=== PATIENT | male | born 1960 | race Caucasian/White ===

== ENCOUNTER 2018-04-08 08:21 | Day surgery (SDC) | payer BC ==
[2018-03-31 14:51] VITALS: BMI 25.1
[~2018-04-08 08:21] MED LIST: DEXAMETHASONE SOD PHOSPHATE 10 MG/ML 1 ML VIAL IV ONE; HEPARIN SODIUM,PORCINE 5,000 UNIT/ML 1 ML VIAL SQ ONE; HYDROmorphone 0.5 MG/0.5 ML SYRINGE IVP PRN; LACTATED RINGERS 1,000 ML IV SCH; MIDAZOLAM 2 MG/2 ML VIAL IV PRN; ONDANSETRON 4 MG/2 ML VIAL IVP ONE; ceFAZolin IN SWFI 2 GM/20 ML SYRINGE IVP ONE
[2018-04-08] MEDS ORDERED: KETOROLAC 30 MG/ML 1 ML VIAL ONE (10:15)
[2018-04-08] MEDS ORDERED: NEOSTIGMINE 1 MG/ML 10 ML VIAL ONE (10:15)
[2018-04-08] MEDS ORDERED: MIDAZOLAM 2 MG/2 ML VIAL ONE (10:15)
[2018-04-08] MEDS ORDERED: fentaNYL (PF) 50 MCG/ML 2 ML AMP ONE (10:15)
[2018-04-08] MEDS ORDERED: LIDOCAINE 1% INJ 10MG/ML (20 ML MDV) ONE (10:15)
[2018-04-08] MEDS ORDERED: GLYCOPYRROLATE 0.2 MG/ML 2 ML VIAL ONE (10:15)
[2018-04-08] MEDS ORDERED: PROPOFOL 10 MG/ML 20 ML VIAL IV ONE (10:15)
[2018-04-08] MEDS ORDERED: SUCCINYLCHOLINE CHLORIDE 100 MG/5 ML SYR IV ONE (10:15)
[2018-04-08] MEDS ORDERED: ROCURONIUM BROMIDE 10 MG/ML 10 ML VIAL IV ONE (10:15)
[2018-04-08] MEDS ORDERED: HYDROmorphone (PF) 1 MG/ML ONE (10:15)
[2018-04-08] MEDS ORDERED: BUPIVACAIN-EPI 0.5%-1:200,000 30 ML VIAL SQ ONE ×2 (10:42)
[2018-04-08] MEDS ORDERED: LACTATED RINGERS 1,000 ML IV ONE ×2 (12:15→16:22)
[2018-04-08 12:25] VITALS: TEMP 97.7
[2018-04-08] MEDS ORDERED: NALOXONE 0.4 MG/ML 1 ML VIAL IV PRN (12:45)
[2018-04-08] MEDS ORDERED: HYDROcodone/APAP 5-325MG 1 EACH TAB PO PRN (12:45)
--- NOTE | 2018-04-08 12:52 | P.OP ---
Date of Procedure: 04/08/18 Procedure(s) Performed: PREOPERATIVE DIAGNOSIS: Right inguinal hernia POSTOPERATIVE DIAGNOSIS: Same PROCEDURE: Laparoscopic repair right inguinal hernia with the da Bertin robot assistance with mesh SURGEON: Marbin EBL: Minimal ANESTHESIA: General COMPLICATIONS: None OPERATIVE PROCEDURE: Patient was placed in the operating table in the supine position. The patient was placed under general anesthesia. The patient was then placed in lithotomy. The abdomen was prepped and draped in usual sterile fashion. A small vertical supraumbilical incision was made. The fascia was retracted anteriorly with Cruger forceps. The Veress needle was inserted. The saline drop test was not normal. I suspected we were still in the preperitoneal space however no further attempts at Veress needle insufflation took place. Stat the 5 mm trocar was used to enter the right mid abdomen through a an 8 mm incision site. We were able to insufflate easily at that time. There was a significant amount of fat in the preperitoneal space at the umbilicus which was limiting our entrance. No evidence of penetration through the peritoneum from the Veress needle was identified. A 12 mm trocar was then placed at the subumbilical incision site. An additional 8 mm trocar was placed under direct visualization in the left upper quadrant in the initial 5 was then switched to an 8 mm trocar. The robotic arms were then brought in and docked into place. The fenestrated bipolar was used in the left arm and the laparoscopic dann was utilized in the right arm. A 30 12 mm scope was used in the up position. The peritoneal cavity was inspected. The patient had evidence of a large right inguinal hernia with no evidence of left internal hernia at this time. The patient had 2 adhesive bands that were between the distal small bowel and the peritoneal sac as well as from the mid ileum and the peritoneal sac. These were both divided using both electrocautery and the clip manufacturing plant manager. I did send a portion of each of these small adhesive bands to pathology. I was slightly suspicious that the band to the mid distal ileum could be a a very narrow Meckel's diverticulum. The peritoneum was incised in a horizontal fashion cephalad to the internal inguinal ring. Following that careful dissection of the preperitoneal space took place. This took place using both electrocautery, sharp dissection but primarily blunt dissection. Visualization of the pubic tubercle and Roland's ligament took place medially. Full dissection took place laterally as well. The hernia sac was fully dissected. Once we had adequate space the 15 x 10 progrip mesh was advanced into the preperitoneal space and flattened out appropriately to cover all potential hernia sites. No sutures were used. The peritoneal defect was then closed using a locking 2-0 VLok suture. I did incorporate the large hernia sac into the medial closure and did so without any defects that could create a future internal hernia. The pneumoperitoneum was then evacuated. The fascia at the 12 mm site was closed using the Tomer Vanessa technique and an 0 Vicryl stitch. The skin of all 3 sites was closed using a 4-0 Monocryl stitch. Steri-Strips and sterile dressings were applied. DISPOSITION: Stable to recovery room
[2018-04-08] MEDS ORDERED: HYDROcodone/APAP 5-325MG 1 EACH TAB PO ONE (15:21)
[2018-04-08 16:34] VITALS: BP 155/92; PULSE 112; RESP 20
== END 2018-04-08 17:17 | disposition home or self-care (01) ==
LOC: OR 08:21
PROVIDERS: ATTEND Surgery
DX: K40.90 Unilateral inguinal hernia, without obstruction or gangrene, not specified as recurrent (principal)
CPT/HCPCS: 49650; 88302; C1781; J2250; J1644; J1100; J2710; J2405; J2001; J3010; J1885; J1170; J0330; J2704

== ENCOUNTER 2018-04-18 08:39 | Emergency (ER) | payer BC ==
[2018-04-18 08:44] VITALS: RESP 18
--- NOTE | 2018-04-18 09:11 | ED ---
General Adult HPI - General Source: patient, RN notes reviewed Mode of arrival: ambulatory Limitations: no limitations <Сергей Balbuena - Last Filed: 04/18/18 10:47> <Christian Philip - Last Filed: 04/18/18 10:55> - General Chief complaint: Recheck/Abnormal Lab/Rx Stated complaint: Problems with hernia surgery Time Seen by Provider: 04/18/18 08:48 - History of Present Illness Initial comments: This a 58-year-old male presents emergency Department with chief complaint of swelling, bruising from surgery. Patient states he had surgery approximately [address] Zazueta. Patient states he had a right inguinal hernia repair with mesh. Patient states that he noticed some bruising it started a few days after surgery but seems to have increased along with swelling. He states he has no associated pain patient is a large area of swelling in his right inguinal region and bruising on his penis. Patient states that he's had no fever no chills. Patient has an appointment on Friday for follow-up. (Сергей Balbuena) - Related Data Previous Rx's Medication Instructions Recorded Hydrocodone/Acetaminophen [[place] 1 - 2 each PO Q4HR PRN #15 tab 04/08/18 5-325] Allergies Allergy/AdvReac Type Severity Reaction Status Date / Time No Known Allergies Allergy Verified 04/18/18 08:44 Review of Systems ROS Other: All systems not noted in ROS Statement are negative. <Сергей Balbuena - Last Filed: 04/18/18 10:47> ROS Other: All systems not noted in ROS Statement are negative. <Christian Philip - Last Filed: 04/18/18 10:55> ROS Statement: Those systems with pertinent positive or pertinent negative responses have been documented in the HPI. Past Medical History Additional Past Medical History / Comment(s): inguinal hernia History of Any Multi-Drug Resistant Organisms: None Reported Past Surgical History: Hernia Repair Past Anesthesia/Blood Transfusion Reactions: No Reported Reaction Additional Past Anesthesia/Blood Transfusion Reaction / Comment(s): NO PRIOR ANESTHESIA/SX HX Past Psychological History: No Psychological Hx Reported Smoking Status: Never smoker Past Alcohol Use History: None Reported Past Drug Use History: None Reported - Past Family History Mother Family Medical History: No Reported History <Сергей Balbuena - Last Filed: 04/18/18 10:47> General Exam Limitations: no limitations General appearance: alert, in no apparent distress Head exam: Present: atraumatic, normocephalic, normal inspection Respiratory exam: Present: normal lung sounds bilaterally. Absent: respiratory distress, wheezes, rales, rhonchi, stridor Cardiovascular Exam: Present: regular rate, normal rhythm, normal heart sounds. Absent: systolic murmur, diastolic murmur, rubs, gallop, clicks GI/Abdominal exam: Present: soft, tenderness (Minimal lower), normal bowel sounds, other (Incisions are well-healed). Absent: distended, guarding, rebound , rigid exam: Absent: normal inspection (Right inguinal region there is a large area of swelling, minimally tender, slightly ecchymotic there is bruising noted to the penile shaft, right sided scrotal swelling) Skin exam: Present: warm, dry, intact, normal color. Absent: rash <Сергей Balbuena - Last Filed: 04/18/18 10:47> Course <Сергей Balbuena - Last Filed: 04/18/18 10:47> <Christian Philip - Last Filed: 04/18/18 10:55> Vital Signs 04/18/18 04/18/18 04/18/18 08:40 08:52 10:28 Temperature 98.5 F Pulse Rate 124 H 115 H 89 Respiratory 18 18 Rate Blood Pressure 156/87 135/87 O2 Sat by Pulse 99 98 Oximetry - Reevaluation(s) Reevaluation #1: 04/18/18 10:54 Patient was reevaluated by myself, Dr. Philip. Patient resting comfortably in bed. Patient is not having pain. Patient does have hernia right inguinal region that does appear firm. This is moderate size and able to be reduced approximately 60-70%. CT reviewed. Case discussed in detail with Dr. Hernandez including CT results. She says secondary to no definitive bowel movement however patient can be discharged with follow-up with Dr. Elliott on Friday. Patient is notified. I reviewed and agree with PA findings. This includes all diagnostic interpretations and treatment plan. (Christian Philip) Medical Decision Making - Lab Data Result diagrams: 04/18/18 09:06 04/18/18 09:06 <Сергей Balbuena - Last Filed: 04/18/18 10:47> - Lab Data Result diagrams: 04/18/18 09:06 04/18/18 09:06 <Christian Philip - Last Filed: 04/18/18 10:55> - Medical Decision Making 58-year-old male presents from for swelling postsurgical. Patient did have CT which shows evidence of hematoma, right inguinal hernia with no bowel. Dr. Philip did evaluate the patient and discussed the case with Dr. Hernandez on- call for Dr. Zazueta in which the patient will follow-up on Friday at appointment and return for any worsening symptoms. (Сергей Balbuena) - Lab Data Lab Results 04/18/18 04/18/18 04/18/18 Range/Units 09:06 09:06 09:06 WBC 6.3 (3.8-10.6) k/uL RBC 4.91 (4.30-5.90) m/uL Hgb 15.0 (13.0-17.5) gm/dL Hct 46.0 (39.0-53.0) % MCV 93.7 (80.0-100.0) fL MCH 30.6 (25.0-35.0) pg MCHC 32.6 (31.0-37.0) g/dL RDW 12.3 (11.5-15.5) % Plt Count 277 (150-450) k/uL Neutrophils % 64 % Lymphocytes % 26 % Monocytes % 5 % Eosinophils % 1 % Basophils % 0 % Neutrophils # 4.1 (1.3-7.7) k/uL Lymphocytes # 1.7 (1.0-4.8) k/uL Monocytes # 0.3 (0-1.0) k/uL Eosinophils # 0.1 (0-0.7) k/uL Basophils # 0.0 (0-0.2) k/uL PT 9.5 (9.0-12.0) sec INR 1.0 (<1.2) APTT 20.6 L (22.0-30.0) sec Sodium 139 (137-145) mmol/L Potassium 3.9 (3.5-5.1) mmol/L Chloride 108 H (98-107) mmol/L Carbon Dioxide 21 L (22-30) mmol/L Anion Gap 10 mmol/L BUN 14 (9-20) mg/dL Creatinine 0.91 (0.66-1.25) mg/dL Est GFR (CKD-EPI)AfAm >90 (>60 ml/min/1.73 sqM) Est GFR (CKD-EPI)NonAf >90 (>60 ml/min/1.73 sqM) Glucose 119 H (74-99) mg/dL Calcium 9.3 (8.4-10.2) mg/dL Total Bilirubin 0.9 (0.2-1.3) mg/dL AST 24 (17-59) U/L ALT 49 (21-72) U/L Alkaline Phosphatase 100 (38-126) U/L Total Protein 6.5 (6.3-8.2) g/dL Albumin 3.8 (3.5-5.0) g/dL Amylase 61 (30-110) U/L Lipase 137 (23-300) U/L Disposition Is patient prescribed a controlled substance at d/c from ED?: No Time of Disposition: 10:49 <Сергей Balbuena - Last Filed: 04/18/18 10:47> <Christian Philip - Last Filed: 04/18/18 10:55> Clinical Impression: Postoperative hematoma, Status post inguinal hernia repair Disposition: HOME SELF-CARE Condition: Stable Instructions: Hematoma (ED) Additional Instructions: Please return to the Emergency Department if symptoms worsen or any other concerns. Referrals: Orquidea Tobar MD [Primary Care Provider] - 1-2 days
[2018-04-18] MEDS ORDERED: SODIUM CHLORIDE 0.9% 500 ML IV ONE (09:12)
[2018-04-18 09:20] LABS: Eosinophils # (A) 0.1 k/uL (0-0.7); Lymphocytes % (A) 26 %; Monocytes # (A) 0.3 k/uL (0-1.0); Monocytes % (A) 5 %; Neutrophils % (A) 64 %; RDW 12.3 % (11.5-15.5)
[2018-04-18 09:31] LABS: ALT 49 U/L (21-72); AST 24 U/L (17-59); Albumin 3.8 g/dL (3.5-5.0); Alkaline Phosphatase 100 U/L (38-126); Amylase 61 U/L (30-110); Anion Gap 10 mmol/L; Blood Urea Nitrogen 14 mg/dL (9-20); Calcium 9.3 mg/dL (8.4-10.2); Carbon Dioxide 21 mmol/L (22-30); Chloride 108 mmol/L (98-107); Glucose 119 mg/dL (74-99); Lipase 137 U/L (23-300); Potassium 3.9 mmol/L (3.5-5.1); Sodium 139 mmol/L (137-145); Total Bilirubin 0.9 mg/dL (0.2-1.3); Total Protein 6.5 g/dL (6.3-8.2)
[2018-04-18 09:41] LABS: Partial Thromboplastin Time 20.6 sec (22.0-30.0); Prothrombin Time 9.5 sec (9.0-12.0)
[2018-04-18 09:42] LABS: Basophils % (A) 0 %; Eosinophils % (A) 1 %; Lymphocytes # (A) 1.7 k/uL (1.0-4.8); MCH 30.6 pg (25.0-35.0); MCHC 32.6 g/dL (31.0-37.0); MCV 93.7 fL (80.0-100.0); Neutrophils # (A) 4.1 k/uL (1.3-7.7); Platelet Count 277 k/uL (150-450); RBC 4.91 m/uL (4.30-5.90); WBC 6.3 k/uL (3.8-10.6)
--- NOTE | 2018-04-18 09:52 | CT ---
EXAMINATION TYPE: CT abdomen pelvis w con DATE OF EXAM: 04/18/2018 REFERENCE: NONE HISTORY: abdominal pain HISTORY: Recent Rt sided inguinal hernia repair, Rt sided bruising and blood spots on penis and groin REFERENCE: NONE CT DLP: 598.6 mGy Automated exposure control for dose reduction was used. TECHNIQUE: Helical acquisition through the abdomen and pelvis was obtained following the oral ingesti on of without Oral Contrast and following intravenous administration of 100 mL of Isovue 300. The beverley a was reformatted in axial, coronal and sagittal projections. FINDINGS: There is some mild dependent atelectasis within the dependent portions of the lungs. There is no pleural or pericardial fluid. The heart is not enlarged. Within the abdomen, the liver, spleen and gallbladder are normal. 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 The left adrenal gland is normal. The pancreas is unremarkable. Both kidneys demonstrate function. There is a slightly irregular, 15.3 mm low attenuating lesion in t he lower pole of the right kidney. This does not meet the requirements of a simple cyst. The left kid chepe appears normal. There is no significant retroperitoneal, iliac or inguinal adenopathy. The bladder is unremarkable. There is no significant diverticular change and there is no radiographic evidence of diverticulitis. Small bowel is normal in caliber. There is an indirect inguinal hernia on the left. There is soft tissue density within this there are vessels entering the hernia. No definite bowel is seen within the hernia. Soft tissue density May rep resent blood. No free fluid and no free air is seen. There is mild facet arthropathy in the lower lumbar spine. IMPRESSION: 1. INDIRECT INGUINAL HERNIA ON THE RIGHT CONTAINING SOFT TISSUE DENSITY WHICH MAY REPRESENT BLOOD. 2. 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 3. 15 MM LOW ATTENUATING LESION IN THE LOWER POLE OF THE RIGHT KIDNEY DOES NOT MEET THE REQUIREMENTS OF A SIMPLE CYST. RENAL ULTRASOUND WOULD BE SUGGESTED.
[2018-04-18 10:29] VITALS: BP 135/87; PULSE 89
[2018-04-18 11:07] VITALS: TEMP 98.6
== END 2018-04-18 11:05 | disposition home or self-care (01) ==
LOC: EC 08:39
DX: K91.870 Postprocedural hematoma of a digestive system organ or structure following a digestive system procedure (principal); K40.90 Unilateral inguinal hernia, without obstruction or gangrene, not specified as recurrent; Z98.890 Other specified postprocedural states; Y83.8 Other surgical procedures as the cause of abnormal reaction of the patient, or of later complication, without mention of misadventure at the time of the procedure
CPT/HCPCS: 99284; 96360; 36415; 80053; 82150; 83690; 85025; 85610; 85730; 74177; Q9967

== ENCOUNTER → 2018-05-20 | Outpatient (CLI) | payer BC ==
--- NOTE | 2018-05-20 23:38 | US ---
EXAMINATION TYPE: US kidneys/renal and bladder DATE OF EXAM: 05/20/2018 COMPARISON: CT 04/18/2018 CLINICAL HISTORY: 58-year-old male N28.9 RENAL DISEASE,LESION. Followup from CT scan TECHNIQUE: Multiple sonographic images of the kidneys and bladder are obtained. FINDINGS: EXAM MEASUREMENTS: Right Kidney: 9.7 x 7.2 x 6.0 cm Left Kidney: 10.0 x 4.6 x 5.5 cm Post Void Residual Volume: 217.4 mL Right Kidney: Hydronephrosis. Inferior Pole simple cyst = 0.9 x 0.7 x 0.7cm Left Kidney: No hydronephrosis or masses seen Bladder: wnl Bilateral Jets seen: yes Normal Post Void Residual: no, as post void volume > 50.0ml. Artificial Breast Fabricator notes: Right adrenal gland is not seen by ultrasound. IMPRESSION: 1. No hydronephrosis. 2. The questioned right renal lesion corresponds to a 9 mm benign simple cyst. 3. Elevated postvoid bladder volume (217 mL). Findings compatible with urinary retention.
== END | disposition home or self-care (01) ==
LOC: RADUSWWP 15:22
PROVIDERS: ATTEND Internal Medicine
DX: N28.9 Disorder of kidney and ureter, unspecified (principal)
CPT/HCPCS: 76770

== ENCOUNTER 2020-01-12 08:11 | Observation (INO) | payer BC ==
--- NOTE | 2020-01-12 08:25 | ED ---
General Adult HPI - General Chief complaint: Chest Pain Stated complaint: Chest Pain Time Seen by Provider: 01/12/20 08:12 Source: patient, EMS Mode of arrival: EMS Limitations: no limitations - History of Present Illness Initial comments: Dictation was produced using [employer] dictation software. please excuse any grammatical, word or spelling errors. This patient was cared for during a federal and state declared state of emergency secondary to Covid 19 Chief Complaint: 59-year-old male with no known comorbidities presents with palpitations. History of Present Illness: Patient is a 59-year-old male. He denies any known comorbidities. States that over the last 2 weeks she's been having increased frequency and intensity of palpitations. Patient states his symptoms began as mild. He states that over the next 14 days his symptoms with increase in frequency and duration. He states that he's been having palpitations. He noti pablo palpitations with radiate up to towards his neck. States that his symptoms are exacerbated with standing versus lying down. States that this morning his symptoms were really severe prompting him to come to the emergency department is brought in by EMS. It was reports that patient had stable vital signs. They did note sinus tachycardia on the monitor and prehospital EKG. Patient states he has no pain. Denies any shortness of breath. No history of blood clots. He lives all by himself. Does not drink or currently use tobacco. Does not do any illicit drugs. Patient had an episode with palpitations several years ago however has not sought medical attention for it. Denies any family history diseases. The ROS documented in this emergency department record has been reviewed and c onfirmed by me. Those systems with pertinent positive or negative responses have been documented in the HPI. All other systems are other negative and/or noncontributory. PHYSICAL EXAM: General Impression: Alert and oriented x3, not in acute distress HEENT: Normocephalic atraumatic, extra-ocular movements intact, pupils equal and reactive to light bilaterally, mucous membranes moist. Cardiovascular: Heart regular rate and rhythm, no murmurs Chest: Able to complete full sentences, no retractions, no tachypnea, clear to auscultation bilaterally Abdomen: abdomen soft, non-tender, non-distended, no organomegaly Musculoskeletal: Pulses present and equal in all extremities, no peripheral edema Motor: no focal deficits noted Neurological: CN II-XII grossly intact, no focal motor or sensory deficits noted Skin: Intact with no visualized rashes Psych: Normal affect and mood ED course: 59-year-old male presents with chief complaint of palpitations that have been increasing in frequency, intensity and duration over the last 14 days. Vital signs upon arrival are within acceptable limits. Laboratory evaluation obtained. Hemoglobin 17.9 consistent with hemoconcentration. Coag panel unremarkable. D-dimer is less than 0.17. Metabolic panel shows mild anion gap acidosis. Troponin is negative. Patient reevaluated bedside still is tachycardic. She'll be given intravenous fluids. Considering duration of patient symptoms have patient admitted with [facility] cardiology. Patient be admitted to [facility] hospitalist group under the care of Dr. Dinh. EKG interpretation: Ventricular rate 113, sinus tachycardia, VT interval 144, QRS 82, QTc 449. No VT prolongation, no QTC prolongation, no ST or T-wave changes noted. No old EKG for comparison. Overall, this EKG is unremarkable - Related Data Home Medications Medication Instructions Recorded Confirmed No Known Home Medications 01/12/20 01/12/20 Allergies Allergy/AdvReac Type Severity Reaction Status Date / Time No Known Allergies Allergy Verified 01/12/20 09:16 Review of Systems ROS Statement: Those systems with pertinent positive or pertinent negative responses have been documented in the HPI. ROS Other: All systems not noted in ROS Statement are negative. Past Medical History Additional Past Medical History / Comment(s): inguinal hernia History of Any Multi-Drug Resistant Organisms: None Reported Past Surgical History: Hernia Repair Past Anesthesia/Blood Transfusion Reactions: No Reported Reaction Additional Past Anesthesia/Blood Transfusion Reaction / Comment(s): NO PRIOR ANESTHESIA/SX HX Past Psychological History: No Psychological Hx Reported Smoking Status: Never smoker Past Alcohol Use History: None Reported Past Drug Use History: None Reported - Past Family History Mother Family Medical History: No Reported History General Exam Limitations: no limitations Course Vital Signs 01/12/20 01/12/20 01/12/20 08:14 08:30 09:30 Temperature 98.4 F Pulse Rate 105 H 101 H 102 H Respiratory 18 18 18 Rate Blood Pressure 166/122 154/92 139/90 O2 Sat by Pulse 98 96 96 Oximetry 01/12/20 10:00 Temperature Pulse Rate 92 Respiratory 18 Rate Blood Pressure 149/88 O2 Sat by Pulse 99 Oximetry Medical Decision Making - Lab Data Result diagrams: 01/12/20 08:30 01/12/20 08:30 Lab Results 01/12/20 01/12/20 01/12/20 Range/Units 08:30 08:30 08:30 WBC 10.0 (3.8-10.6) k/uL RBC 5.86 (4.30-5.90) m/uL Hgb 17.9 H (13.0-17.5) gm/dL Hct 54.8 H (39.0-53.0) % MCV 93.6 (80.0-100.0) fL MCH 30.5 (25.0-35.0) pg MCHC 32.6 (31.0-37.0) g/dL RDW 12.7 (11.5-15.5) % Plt Count 217 (150-450) k/uL Neutrophils % 79 % Lymphocytes % 14 % Monocytes % 5 % Eosinophils % 0 % Basophils % 0 % Neutrophils # 8.0 H (1.3-7.7) k/uL Lymphocytes # 1.4 (1.0-4.8) k/uL Monocytes # 0.5 (0-1.0) k/uL Eosinophils # 0.0 (0-0.7) k/uL Basophils # 0.0 (0-0.2) k/uL PT 9.8 (9.0-12.0) sec INR 0.9 (<1.2) APTT 21.1 L (22.0-30.0) sec D-Dimer <0.17 (<0.60) mg/L FEU Sodium 137 (137-145) mmol/L Potassium 3.6 (3.5-5.1) mmol/L Chloride 102 (98-107) mmol/L Carbon Dioxide 21 L (22-30) mmol/L Anion Gap 14 mmol/L BUN 9 (9-20) mg/dL Creatinine 0.92 (0.66-1.25) mg/dL Est GFR (CKD-EPI)AfAm >90 (>60 ml/min/1.73 sqM) Est GFR (CKD-EPI)NonAf >90 (>60 ml/min/1.73 sqM) Glucose 133 H (74-99) mg/dL Calcium 10.3 H (8.4-10.2) mg/dL Magnesium 2.0 (1.6-2.3) mg/dL Troponin I (0.000-0.034) ng/mL 01/12/20 Range/Units 08:30 WBC (3.8-10.6) k/uL RBC (4.30-5.90) m/uL Hgb (13.0-17.5) gm/dL Hct (39.0-53.0) % MCV (80.0-100.0) fL MCH (25.0-35.0) pg MCHC (31.0-37.0) g/dL RDW (11.5-15.5) % Plt Count (150-450) k/uL Neutrophils % % Lymphocytes % % Monocytes % % Eosinophils % % Basophils % % Neutrophils # (1.3-7.7) k/uL Lymphocytes # (1.0-4.8) k/uL Monocytes # (0-1.0) k/uL Eosinophils # (0-0.7) k/uL Basophils # (0-0.2) k/uL PT (9.0-12.0) sec INR (<1.2) APTT (22.0-30.0) sec D-Dimer (<0.60) mg/L FEU Sodium (137-145) mmol/L Potassium (3.5-5.1) mmol/L Chloride (98-107) mmol/L Carbon Dioxide (22-30) mmol/L Anion Gap mmol/L BUN (9-20) mg/dL Creatinine (0.66-1.25) mg/dL Est GFR (CKD-EPI)AfAm (>60 ml/min/1.73 sqM) Est GFR (CKD-EPI)NonAf (>60 ml/min/1.73 sqM) Glucose (74-99) mg/dL Calcium (8.4-10.2) mg/dL Magnesium (1.6-2.3) mg/dL Troponin I <0.012 (0.000-0.034) ng/mL Disposition Clinical Impression: Palpitations Disposition: ADMITTED IP TO THIS [facility] Condition: Fair Referrals: Orquidea Tobar MD [Primary Care Provider] - 1-2 days Decision Time: 10:17
--- NOTE | 2020-01-12 08:50 | XR ---
EXAMINATION TYPE: XR chest 2V DATE OF EXAM: 01/12/2020 COMPARISON: NONE HISTORY: Palpitations TECHNIQUE: Frontal and lateral views of the chest are obtained. FINDINGS: There is no focal air space opacity, pleural effusion, or pneumothorax seen. Very mild rig ht hemidiaphragm elevation is incidentally noted. The cardiac silhouette size is within normal limit s. The osseous structures are intact. IMPRESSION: No acute cardiopulmonary process.
[2020-01-12 09:25] LABS: Basophils % (A) 0 %; Eosinophils % (A) 0 %; HCT 54.8 % (39.0-53.0); HGB 17.9 gm/dL (13.0-17.5); Lymphocytes # (A) 1.4 k/uL (1.0-4.8); Lymphocytes % (A) 14 %; MCH 30.5 pg (25.0-35.0); MCHC 32.6 g/dL (31.0-37.0); MCV 93.6 fL (80.0-100.0); Mean Platelet Volume 8.1; Monocytes # (A) 0.5 k/uL (0-1.0); Monocytes % (A) 5 %; Neutrophils % (A) 79 %; Platelet Count 217 k/uL (150-450); RBC 5.86 m/uL (4.30-5.90); RDW 12.7 % (11.5-15.5)
[2020-01-12 09:44] LABS: African American GFR (CKD) >90 (>60 ml/min/1.73 sqM); Anion Gap 14 mmol/L; Blood Urea Nitrogen 9 mg/dL (9-20); Calcium 10.3 mg/dL (8.4-10.2); Carbon Dioxide 21 mmol/L (22-30); Chloride 102 mmol/L (98-107); Glucose 133 mg/dL (74-99); Non-African American GFR(CKD) >90 (>60 ml/min/1.73 sqM); Potassium 3.6 mmol/L (3.5-5.1); Sodium 137 mmol/L (137-145)
[2020-01-12 09:48] LABS: D-Dimer <0.17 mg/L FEU (<0.60); INR 0.9 (<1.2); Prothrombin Time 9.8 sec (9.0-12.0)
[2020-01-12] MEDS ORDERED: SODIUM CHLORIDE 0.9% 1,000 ML IV STA (09:49)
[2020-01-12 10:05] LABS: Partial Thromboplastin Time 21.1 sec (22.0-30.0)
[2020-01-12] MEDS ORDERED: NALOXONE 0.4 MG/ML 1 ML VIAL IV PRN (10:13)
[2020-01-12] MEDS ORDERED: SODIUM CHLORIDE 0.9% 1,000 ML IV SCH (10:15)
--- NOTE | 2020-01-12 22:47 | P.HPIM ---
History of Present Illness H&P Date: 01/12/20 Chief Complaint: Palpitations Patient is a 59-year-old male with no significant past medical history came to ER with complaints of palpitations for the past 10 days on and off. Patient states that he felt like missing beats in between. During the last 2 days davis ent is having increasing frequency of symptoms and pounding heartbeat which made him to come to ER. Patient states that his symptoms gets worse with standing versus lying down. Denies any complaints of chest pain. No headache or dizziness or lightheadedness. No nausea vomiting or abdominal pain. No dysuria or hematuria. Patient has been afebrile. No cough or sputum production. Denies any history of prior heart disease. Denied increasing frequency of caffeine intake. Patient states that he has been at home for the last 1 month and drinking less coffee compared to when he was working. Patient had an episode with palpitations several years ago however has not sought medical attention for it. Patient lives by himself. Denied any drugs or IVDU. Denies any smoking. EKG showed sinus tachycardia without ST-T wave changes. Chest x-ray showed no acute cardiopulmonary process. Laboratory data showed WBC 10.0, hemoglobin 17.9, neutrophils 8.0 absolute. Platelets 217 D-dimer less than 0.17 Sodium 137 potassium 3.6, bicarb is 21, BUN 9 and creatinine 0.92 blood sugar 133 and calcium 10.3 magnesium 2.0 Troponin 0 0.012 TSH 4.47 Review of Systems Constitutional: Patient denies any fever or chills . No generalized weakness or weight loss. Abdomen: Patient denied nausea vomiting and diarrhea and abdominal pain. Cardiovascular: Patient denies any chest pain or short of breath . + pa lpitations. Respiratory: patient denied any cough is from production. No shortness of breath Neurologic: Patient denied any numbness or tingling. Patient does have dizziness and headache and ringing ears. Musculoskeletal: Patient denies any complaints of joint swelling or deformity. Skin: Negative Psychiatric: Negative Endocrine: No heat or cold intolerance. No recent weight gain. Genitourinary: No dysuria or hematuria. All other 14 point ROS negative except the above Past Medical History Additional Past Medical History / Comment(s): inguinal hernia History of Any Multi-Drug Resistant Organisms: None Reported Past Surgical History: Hernia Repair Past Anesthesia/Blood Transfusion Reactions: No Reported Reaction Additional Past Anesthesia/Blood Transfusion Reaction / Comment(s): NO PRIOR ANESTHESIA/SX HX Past Psychological History: No Psychological Hx Reported Smoking Status: Never smoker Past Alcohol Use History: None Reported Past Drug Use History: None Reported - Past Family History Mother Family Medical History: No Reported History Medications and Allergies Home Medications Medication Instructions Recorded Confirmed Type No Known Home Medications 01/12/20 01/12/20 History Allergies Allergy/AdvReac Type Severity Reaction Status Date / Time No Known Allergies Allergy Verified 01/12/20 09:16 Physical Exam Vitals: Vital Signs Temp Pulse Resp BP Pulse Ox 01/12/20 11:00 94 18 142/92 98 01/12/20 10:00 92 18 149/88 99 01/12/20 09:30 102 H 18 139/90 96 01/12/20 08:30 101 H 18 154/92 96 01/12/20 08:14 98.4 F 105 H 18 166/122 98 Intake and Output 01/11/20 01/12/20 01/12/20 22:59 06:59 14:59 Other: Weight 77.111 kg PHYSICAL EXAMINATION: Patient is lying in the bed comfortably, no acute distress, awake alert and oriented.. HEENT: Normocephalic. Neck is supple. Pupils reactive. Nostrils clear. Oral cavity is moist. Ears reveal no drainage. Neck reveals no JVD, carotid bruits, or thyromegaly. CHEST EXAMINATION: Trachea is central. Symmetrical expansion. Lung mckeon clear to auscultation and percussion. CARDIAC: Normal S1, S2 with no gallops. No murmurs ABDOMEN: Soft. Bowel sounds normal. No organomegaly. No abdominal bruits. Extremities: reveal no edema. No clubbing or cyanosis Neurologically awake, alert, oriented x3 with well-coordinated movements. No focal deficits noted Skin: No rash or skin lesions. Psychiatric: Coperative. Nonsuicidal Musculoskeletal: No joint swelling or deformity. Normal range of motion. Results CBC & Chem 7: 01/12/20 08:30 01/12/20 08:30 Labs: Abnormal Lab Results - Last 24 Hours (Table) 01/12/20 01/12/20 01/12/20 Range/Units 08:30 08:30 08:30 Hgb 17.9 H (13.0-17.5) gm/dL Hct 54.8 H (39.0-53.0) % Neutrophils # 8.0 H (1.3-7.7) k/uL APTT 21.1 L (22.0-30.0) sec Carbon Dioxide 21 L (22-30) mmol/L Glucose 133 H (74-99) mg/dL Calcium 10.3 H (8.4-10.2) mg/dL Thrombosis Risk Factor Assmnt - DVT/VTE Prophylaxis DVT/VTE Prophylaxis: Pharmacologic Prophylaxis ordered Assessment and Plan Assessment: Palpitations. Rule out arrhythmia. Sinus tachycardia Mild hypercalcemia likely due to dehydration DVT prophylaxis. Plan: Patient be continued on telemetry monitoring. Was given IV fluid bolus in the ER. Patient is currently asymptomatic. TSH level is within normal limits. Cardiology was consulted. Further recommendations based on the clinical course. Time with Patient: Greater than 30
[2020-01-13 06:06] VITALS: RESP 16
[2020-01-13 08:22] LABS: Basophils % (A) 0 %; Eosinophils # (A) 0.1 k/uL (0-0.7); Eosinophils % (A) 1 %; HCT 53.3 % (39.0-53.0); HGB 17.9 gm/dL (13.0-17.5); Lymphocytes # (A) 1.9 k/uL (1.0-4.8); Lymphocytes % (A) 25 %; MCH 32.1 pg (25.0-35.0); MCHC 33.6 g/dL (31.0-37.0); MCV 95.5 fL (80.0-100.0); Mean Platelet Volume 7.9; Monocytes # (A) 0.4 k/uL (0-1.0); Monocytes % (A) 5 %; Neutrophils # (A) 5.1 k/uL (1.3-7.7); Neutrophils % (A) 67 %; Platelet Count 230 k/uL (150-450); RBC 5.58 m/uL (4.30-5.90); RDW 13.2 % (11.5-15.5); WBC 7.7 k/uL (3.8-10.6)
[2020-01-13 08:38] LABS: African American GFR (CKD) >90 (>60 ml/min/1.73 sqM); Anion Gap 7 mmol/L; Blood Urea Nitrogen 12 mg/dL (9-20); Calcium 10.2 mg/dL (8.4-10.2); Carbon Dioxide 31 mmol/L (22-30); Chloride 101 mmol/L (98-107); Glucose 114 mg/dL (74-99); Non-African American GFR(CKD) >90 (>60 ml/min/1.73 sqM); Potassium 4.2 mmol/L (3.5-5.1); Sodium 139 mmol/L (137-145)
[2020-01-13 13:55] VITALS: BP 150/87; PULSE 70; TEMP 98.2
--- NOTE | 2020-01-13 14:40 | ECHOS ---
STRESS ECHOCARDIOGRAM LUMASON: Vial INDICATIONS: Palpitations. MEDICATIONS: None. BASELINE HEART RATE: 113 BASELINE BLOOD PRESSURE: 97/75 MAXIMUM HEART RATE: 157 MAXIMUM BLOOD PRESSURE: 180/109 85% MPHR: 136 100% MPHR: 160 METS: 7.9 MAXIMUM STAGE REACHED: TOTAL EXERCISE TIME: 6:45 CLINICAL INFORMATION: Baseline EKG revealed a normal sinus rhythm with a with a prominent P waves in lead 2, poor R-wave progression and mild nonspecific inferior wall, nonspecific ST and T-wave abnormality. Patient walked for 6 minutes 45 seconds on a standard Gamal protocol. Achieved a maximal heart rate of 157 beats per minute which is well above 85% of predicted maximal. He did not have any symptoms of chest pain to suggest angina. There were frequent supraventricular ectopic beats. Short runs of PAD, high and then in the recovery. He went back into a sustained sinus rhythm. His resting blood pressure was 97/60. Peak blood pressure was 180/109. By EKG criteria, this is a technically inconclusive stress echo because of resting EKG changes. At peak exercise, there were short runs of PAT and frequent supraventricular ectopic beats. A short run of atrial fibrillation was also seen, which was self-limiting. This is therefore an inconclusive stress test with fair exercise capacity by EKG criteria. Baseline echo images revealed normal wall motion and wall thickening of all segments. At peak exercise there was good augmentation of left and wall motion wall thickening of all segments. The contractility of the chamber was somewhat erratic and not very synchronous because of short runs of PAT and atrial fibrillation. However, there is no evidence of ischemia noted. IMPRESSION: 1. Limited exercise capacity 10 technically an inconclusive stress test because of resting EKG changes. There were short runs of P 80, frequent PACs and short run of atrial fibrillation. 2. There was no ischemia on the basis of stress echo but patient had frequent ventricular seek frequent supraventricular ectopy making interpretation somewhat difficult. 3. The supraventricular ectopy was noted throughout during exercise and then he went back into a sustained sinus rhythm and recovered. MMODL / IJN: [id number] /
[2020-01-13] MEDS ORDERED: METOPROLOL SUCCINATE (ER) 25 MG TAB.ER.24H PO SCH (15:00)
--- NOTE | 2020-01-13 16:53 | CONS ---
CONSULTATION CHIEF COMPLAINT: Palpitations. This is a 59-year-old gentleman with no significant past medical history who presented to the hospital with on and off episodes of palpitations for the last 10 days. He states that he usually feels a few skipped beats, yesterday before coming in, it was more sustained more frequent. He was concerned and came to the hospital. He walks regularly without any symptoms and does not have any other medical problems. PAST MEDICAL HISTORY: Unremarkable. MEDICATIONS: None. ALLERGIES: None. FAMILY HISTORY: Negative for premature coronary artery disease. SOCIAL HISTORY: Negative for current smoking, EtOH abuse, or drug abuse. REVIEW OF SYSTEMS: HEENT: Unremarkable. CARDIAC: As described above. RESPIRATORY: As described above. GI: Negative. GENITOURINARY: Negative. ALLERGY/IMMUNOLOGY: Negative. SKIN: Negative. MUSCULOSKELETAL: Significant for arthritis. PSYCHOSOCIAL: Negative. ENDOCRINE: Negative. DERM: Negative. CONSTITUTIONAL; Negative. ONCOLOGICAL: Negative. Rest of the system review is not relevant. PHYSICAL EXAM: Comfortable at rest. Vital signs are stable. There is no jugular venous distention. Carotid upstroke is normal. There is no bruit. chest exam reveals good air entry bilaterally. Heart exam reveals first and second heart sounds. No gallop. No murmur. No rub. Abdomen is soft, nontender. Exam of extremities did not reveal any edema. Peripheral pulses are felt. 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 The patient had 2 sets of troponins that are negative. D-dimer is negative. EKG shows sinus rhythm with Q-waves in the inferior leads, O2 saturation is normal. ASSESSMENT: Palpitations. The exact etiology is unclear, it could be related to anxiety. I am going to obtain a 2D echo and stress echo. If this workup is unremarkable, he can be discharged home and outpatient followup arranged through my office. MMODL / IJN: [id number] /
--- NOTE | 2020-01-14 07:30 | ECHOF ---
Referral Reason:chest pain MEASUREMENTS -------- HEIGHT: 154.9 cm WEIGHT: 74.8 kg BP: RVIDd: 2.7 cm (< 3.3) IVSd: 1.6 cm (0.6 - 1.1) LVIDd: 2.8 cm (3.9 - 5.3) LVPWd: 1.6 cm (0.6 - 1.1) IVSs: 1.9 cm LVIDs: 1.5 cm LVPWs: 1.6 cm LAESV Index (A-L): 13.13 ml/m Ao Diam: 4.3 cm (2.0 - 3.7) AV Cusp: 1.8 cm (1.5 - 2.6) MV EXCURSION: 17.586 mm (> 18.000) MV EF SLOPE: 34 mm/s (70 - 150) EPSS: 0.5 cm MV E Edgar: 0.59 m/s MV DecT: 243 ms MV A Edgar: 0.94 m/s MV E/A Ratio: 0.63 AR PHT: 435 ms RAP: 5.00 mmHg RVSP: 39.68 mmHg FINDINGS -------- Sinus rhythm. This was a technically adequate study. The left ventricular size is normal. There is moderate concentric left ventricular hypertrophy. T here is normal global left ventricular contractility. Overall left ventricular systolic function is normal with, an EF between 55 - 60 %. The diastolic filling pattern is normal for the age of the p atient 10.39. The right ventricle is normal in size. Normal LA size by volume 22+/-6 ml/m2. The right atrial size is normal. Interatrial and interventricular septum intact. The aortic valve is trileaflet and appears structurally normal. Trace amount of aortic regurgitatio n. There is no evidence of aortic stenosis. There is trace mitral regurgitation. Mild tricuspid regurgitation present. There is mild pulmonary hypertension. There is no pulmonic regurgitation present. The aortic root is mildy dilated. IVC Not well visulized. Echo free space may represent effusion or a pericardial fat pad. CONCLUSIONS -------- 1. Sinus rhythm. 2. This was a technically adequate study. 3. The left ventricular size is normal. 4. There is moderate concentric left ventricular hypertrophy. 5. There is normal global left ventricular contractility. 6. Overall left ventricular systolic function is normal with, an EF between 55 - 60 %. 7. The diastolic filling pattern is normal for the age of the patient 10.39 8. The right ventricle is normal in size. 9. Normal LA size by volume 22+/-6 ml/m2. 10. The right atrial size is normal. 11. Interatrial and interventricular septum intact. 12. The aortic valve is trileaflet and appears structurally normal. 13. Trace amount of aortic regurgitation. 14. There is no evidence of aortic stenosis. 15. There is trace mitral regurgitation. 16. Mild tricuspid regurgitation present. 17. There is mild pulmonary hypertension. 18. There is no pulmonic regurgitation present. 19. The aortic root is mildy dilated. 20. IVC Not well visulized. 21. Echo free space may represent effusion or a pericardial fat pad. QUARRY WORKER: Denise Dixon RDCS
--- NOTE | 2020-01-23 23:10 | P.DS ---
Providers Date of admission: 01/12/20 10:15 Expected date of discharge: 01/13/20 Attending physician: Jose Dinh MD Consults: 01/12/20 10:14 Consult Physician Routine Consulting Provider: Meño Clements Consult Reason/Comments: palpitations Do you want consulting provider notified?: Yes Primary care physician: Ekaterina Moses [facility] Course: Discharge diagnosis Palpitations. Ruled out arrhythmia. PVCs per stress echo. Sinus tachycardia Mild hypercalcemia likely due to dehydration, resolved. DVT prophylaxis. Hospital course Patient is a 59-year-old male with no significant past medical history came to ER with complaints of palpitations for the past 10 days on and off. Patient states that he felt like missing beats in between. During the last 2 days patient is having increasing frequency of symptoms and pounding heartbeat which made him to come to ER. Patient states that his symptoms gets worse with standing versus lying down. Denies any complaints of chest pain. No headache or dizziness or lightheadedness. No nausea vomiting or abdominal pain. No dysuria or hematuria. Patient has been afebrile. No cough or sputum production. Denies any history of prior heart disease. Denied increasing frequency of caffeine intake. Patient states that he has been at home for the last 1 month and drinking less coffee compared to when he was working. Patient had an episode with palpitations several years ago however has not sought medical attention for it. Patient lives by himself. Denied any drugs or IVDU. Denies any smoking. EKG showed sinus tachycardia without ST-T wave changes. Chest x-ray showed no acute cardiopulmonary process. Laboratory data showed WBC 10.0, hemoglobin 17.9, neutrophils 8.0 absolute. Platelets 217 D-dimer less than 0.17 Sodium 137 potassium 3.6, bicarb is 21, BUN 9 and creatinine 0.92 blood sugar 133 and calcium 10.3 magnesium 2.0 Troponin 0 0.012 TSH 4.47 Patient was continued on telemetry monitoring. TSH is within normal limits. Patient was seen by cardiology and recommended stress echocardiogram which showed frequent PACs and short run of atrial fibrillation. Patient was started on Toprol-XL 25 mg daily. Cardiology recommends as an outpatient follow-up with Dr. Dick in a week. Otherwise patient denied any palpitations today. Heart rate is better controlled. No other overnight telemetry monitoring changes. PHYSICAL EXAMINATION: Patient is lying in the bed comfortably, no acute distress, awake alert and oriented.. HEENT: Normocephalic. Neck is supple. Pupils reactive. Nostrils clear. Oral cavity is moist. Ears reveal no drainage. Neck reveals no JVD, carotid bruits, or thyromegaly. CHEST EXAMINATION: Trachea is central. Symmetrical expansion. Lung mckeon clear to auscultation and percussion. CARDIAC: Normal S1, S2 with no gallops. No murmurs ABDOMEN: Soft. Bowel sounds normal. No organomegaly. No abdominal bruits. Extremities: reveal no edema. No clubbing or cyanosis Neurologically awake, alert, oriented x3 with well-coordinated movements. No focal deficits noted Skin: No rash or skin lesions. Psychiatric: Coperative. Nonsuicidal Musculoskeletal: No joint swelling or deformity. Normal range of motion. Discharge vitals reviewed. Patient Condition at Discharge: Fair Plan - Discharge Summary Discharge Rx Participant: No New Discharge Prescriptions: New Metoprolol Succinate (ER) [Toprol XL] 25 mg PO DAILY #30 tab.er.24h Discharge Medication List Metoprolol Succinate (ER) [Toprol XL] 25 mg PO DAILY #30 tab.er.24h 01/13/20 [Rx] Follow up Appointment(s)/Referral(s): Orquidea Tobar MD [Primary Care Provider] - 01/19/20 2:10 pm Meño Clements MD [STAFF PHYSICIAN] - 02/03/20 12:45 pm Discharge Disposition: HOME SELF-CARE
== END 2020-01-13 15:40 | disposition home or self-care (01) ==
LOC: EC 08:11 → 3SCARD 10:15
PROVIDERS: ADMIT Internal Medicine; ATTEND Internal Medicine
DX: R00.2 Palpitations (principal); E86.0 Dehydration; I49.3 Ventricular premature depolarization; E83.52 Hypercalcemia; R00.0 Tachycardia, unspecified; I08.3 Combined rheumatic disorders of mitral, aortic and tricuspid valves; I51.7 Cardiomegaly; I27.20 Pulmonary hypertension, unspecified; R07.9 Chest pain, unspecified; Z11.59 Encounter for screening for other viral diseases
CPT/HCPCS: 36415; 93005; 93306; 93351; 85379; 80048 ×2; 84443; 83735; 84484; 85025 ×2; 85610; 85730; 87635; 71046; G0378 ×2

== ENCOUNTER 2020-04-03 11:44 | Emergency (ER) | payer BC ==
[2020-04-03 12:36] LABS: Basophils % (A) 1 %; Eosinophils # (A) 0.1 k/uL (0-0.7); Eosinophils % (A) 2 %; HCT 49.7 % (39.0-53.0); HGB 16.5 gm/dL (13.0-17.5); Lymphocytes # (A) 1.7 k/uL (1.0-4.8); Lymphocytes % (A) 25 %; MCH 30.8 pg (25.0-35.0); MCHC 33.3 g/dL (31.0-37.0); MCV 92.6 fL (80.0-100.0); Mean Platelet Volume 7.6; Monocytes # (A) 0.3 k/uL (0-1.0); Monocytes % (A) 5 %; Neutrophils # (A) 4.3 k/uL (1.3-7.7); Neutrophils % (A) 66 %; Platelet Count 208 k/uL (150-450); RBC 5.37 m/uL (4.30-5.90); RDW 12.4 % (11.5-15.5); WBC 6.5 k/uL (3.8-10.6)
--- NOTE | 2020-04-03 12:40 | ED ---
General Adult HPI - General Chief complaint: Neuro Symptoms/Deficit Stated complaint: facial numbness Time Seen by Provider: 04/03/20 12:07 Source: patient, RN notes reviewed, old records reviewed Mode of arrival: ambulatory Limitations: no limitations - History of Present Illness Initial comments: 60-year-old male presenting for evaluation of intermittent bilateral facial and neck numbness and tingling. Symptoms have been going on for at least one month, maybe 6 weeks. He states that it does seem to be positional. He describes only a mild aching sensation in the back of his neck. No significant pain. No trauma. Denies limb symptoms, no numbness or tingling or weakness in either arm or leg. No chest pain or abdominal pain. No headache. No vision changes. - Related Data Previous Rx's Medication Instructions Recorded Metoprolol Succinate (ER) [Toprol 25 mg PO DAILY #30 tab.er.24h 01/13/20 XL] Allergies Allergy/AdvReac Type Severity Reaction Status Date / Time No Known Allergies Allergy Verified 04/03/20 11:48 Review of Systems ROS Statement: Those systems with pertinent positive or pertinent negative responses have been documented in the HPI. ROS Other: All systems not noted in ROS Statement are negative. Past Medical History Past Medical History: Atrial Fibrillation, Hypertension Additional Past Medical History / Comment(s): inguinal hernia History of Any Multi-Drug Resistant Organisms: None Reported Past Surgical History: Hernia Repair Past Anesthesia/Blood Transfusion Reactions: No Reported Reaction Additional Past Anesthesia/Blood Transfusion Reaction / Comment(s): NO PRIOR ANESTHESIA/SX HX Past Psychological History: No Psychological Hx Reported Smoking Status: Never smoker Past Alcohol Use History: None Reported Past Drug Use History: None Reported - Past Family History Mother Family Medical History: No Reported History General Exam Limitations: no limitations General appearance: alert, in no apparent distress Head exam: Present: atraumatic, normocephalic Eye exam: Present: normal appearance, PERRL ENT exam: Present: normal exam Neck exam: Present: normal inspection. Absent: tenderness, meningismus Respiratory exam: Present: normal lung sounds bilaterally. Absent: respiratory distress, wheezes Cardiovascular Exam: Present: regular rate, normal rhythm GI/Abdominal exam: Present: soft. Absent: distended, tenderness Extremities exam: Present: normal inspection, normal capillary refill. Absent: pedal edema Neurological exam: Present: alert, oriented X3, CN II-XII intact. Absent: motor sensory deficit (NIH is 0) Psychiatric exam: Present: normal affect, normal mood Skin exam: Present: warm, dry, intact. Absent: cyanosis, diaphoretic Course Vital Signs 04/03/20 11:45 Temperature 98.3 F Pulse Rate 94 Respiratory 20 Rate Blood Pressure 159/86 O2 Sat by Pulse 98 Oximetry EKG Findings - EKG Comments: EKG Findings:: EKG: Normal sinus rhythm, rate of 83, DC interval 154, QRS duration 84, QTC 441, no ST segment elevation Medical Decision Making - Medical Decision Making 60-year-old male with greater than 1 month of alternating bilateral facial numbness and tingling. No significant pain complaints. No unilateral weakness or concern for CVA. I did obtain a head CT which is negative for intracranial hemorrhage or mass effect as well as CT cervical bones which is negative for acute fracture dislocation, no significant arthritis or foraminal narrowing. He has normal electrolytes, normal CBC. I will recommend outpatient follow-up with neurology given his ongoing symptoms. Patient will return with unilateral numbness or weakness. - Lab Data Result diagrams: 04/03/20 12:17 04/03/20 12:17 Lab Results 04/03/20 04/03/20 04/03/20 Range/Units 12:17 12:17 12:17 WBC 6.5 (3.8-10.6) k/uL RBC 5.37 (4.30-5.90) m/uL Hgb 16.5 (13.0-17.5) gm/dL Hct 49.7 (39.0-53.0) % MCV 92.6 (80.0-100.0) fL MCH 30.8 (25.0-35.0) pg MCHC 33.3 (31.0-37.0) g/dL RDW 12.4 (11.5-15.5) % Plt Count 208 (150-450) k/uL Neutrophils % 66 % Lymphocytes % 25 % Monocytes % 5 % Eosinophils % 2 % Basophils % 1 % Neutrophils # 4.3 (1.3-7.7) k/uL Lymphocytes # 1.7 (1.0-4.8) k/uL Monocytes # 0.3 (0-1.0) k/uL Eosinophils # 0.1 (0-0.7) k/uL Basophils # 0.0 (0-0.2) k/uL PT 9.7 (9.0-12.0) sec INR 0.9 (<1.2) APTT 21.8 L (22.0-30.0) sec Sodium 138 (137-145) mmol/L Potassium 3.9 (3.5-5.1) mmol/L Chloride 108 H (98-107) mmol/L Carbon Dioxide 24 (22-30) mmol/L Anion Gap 6 mmol/L BUN 12 (9-20) mg/dL Creatinine 0.83 (0.66-1.25) mg/dL Est GFR (CKD-EPI)AfAm >90 (>60 ml/min/1.73 sqM) Est GFR (CKD-EPI)NonAf >90 (>60 ml/min/1.73 sqM) Glucose 110 H (74-99) mg/dL Calcium 9.3 (8.4-10.2) mg/dL Magnesium 1.8 (1.6-2.3) mg/dL Total Bilirubin 0.6 (0.2-1.3) mg/dL AST 23 (17-59) U/L ALT 16 (4-49) U/L Alkaline Phosphatase 70 (38-126) U/L Total Protein 6.9 (6.3-8.2) g/dL Albumin 4.4 (3.5-5.0) g/dL Disposition Clinical Impression: Paresthesia Disposition: HOME SELF-CARE Condition: Good Instructions (If sedation given, give patient instructions): Paresthesia (ED) Is patient prescribed a controlled substance at d/c from ED?: No Referrals: Orquidea Tobar MD [Primary Care Provider] - 1-2 days Lida Mcbride MD [REFERRING] - 1-2 days Time of Disposition: 13:22
[2020-04-03 12:47] LABS: ALT 16 U/L (4-49); AST 23 U/L (17-59); African American GFR (CKD) >90 (>60 ml/min/1.73 sqM); Albumin 4.4 g/dL (3.5-5.0); Alkaline Phosphatase 70 U/L (38-126); Anion Gap 6 mmol/L; Blood Urea Nitrogen 12 mg/dL (9-20); Calcium 9.3 mg/dL (8.4-10.2); Carbon Dioxide 24 mmol/L (22-30); Chloride 108 mmol/L (98-107); Glucose 110 mg/dL (74-99); Magnesium 1.8 mg/dL (1.6-2.3); Non-African American GFR(CKD) >90 (>60 ml/min/1.73 sqM); Potassium 3.9 mmol/L (3.5-5.1); Sodium 138 mmol/L (137-145); Total Bilirubin 0.6 mg/dL (0.2-1.3); Total Protein 6.9 g/dL (6.3-8.2)
--- NOTE | 2020-04-03 12:47 | CT ---
EXAMINATION TYPE: CT brain tera wo con DATE OF EXAM: 04/03/2020 COMPARISON: None HISTORY: Neurological symptoms. Intermittent bilateral facial numbness for one month. CT DLP: 1360.5 mGycm Automated exposure control for dose reduction was used. TECHNIQUE: CT scan of the head and cervical spine are performed without contrast. FINDINGS: There is no acute intracranial hemorrhage, mass effect, or midline shift identified. The ventricles and sulci are within normal limits in size. No extra-axial fluid collection. The globes are grossly symmetric. The visualized sinuses and mastoid air cells are clear. Cervical spine is visualized in its entirety from C1 through upper thoracic levels and demonstrates s atisfactory alignment without evidence of acute fracture or dislocation. Prevertebral soft tissue ap pears within normal limits. No evidence of high-grade canal stenosis. The C1-C2 articulation is unre markable. IMPRESSION: 1. There is no acute fracture or dislocation evident in the cervical spine. 2. No acute intracranial hemorrhage, mass effect, or midline shift is seen.
[2020-04-03 13:02] LABS: INR 0.9 (<1.2); Prothrombin Time 9.7 sec (9.0-12.0)
[2020-04-03 13:04] LABS: Partial Thromboplastin Time 21.8 sec (22.0-30.0)
[2020-04-03 13:35] VITALS: BP 142/92; PULSE 75; RESP 18
[2020-04-03 13:44] VITALS: TEMP 98.4
== END 2020-04-03 13:43 | disposition home or self-care (01) ==
LOC: EC 11:44
DX: R20.2 Paresthesia of skin (principal); R20.0 Anesthesia of skin
CPT/HCPCS: 36415; 70450; 72125; 80053; 83735; 85025; 85610; 85730; 93005; 99285

== ENCOUNTER → 2020-05-02 | Outpatient (CLI) | payer BC ==
--- NOTE | 2020-05-02 20:37 | MR ---
EXAMINATION TYPE: MR brain wo con DATE OF EXAM: 05/02/2020 COMPARISON: CT brain 04/03/2020 HISTORY: Facial neck numbness CONTRAST: Performed utilizing 0 mL intravenous Gadavist gadolinium contrast. TECHNIQUE: Multiplanar, multiecho imaging on a 3.0 Audrey magnet is performed through the brain. Stud y is performed within 24 hours of arrival to the hospital. The craniovertebral junction is normal. The pituitary is normal. Diffusion-weighted imaging is performed. No abnormal hyperintensity is present to suggest an acute i ntracranial infarct or acute ischemic change. There are 4 punctate subcortical white matter changes within the deep white matter not out of proport ion to the patient age. Findings are nonspecific but can be related to microvascular ischemic change, migraine headaches, vasculitis, multiple sclerosis, Lyme disease. Ventricles and sulci are common for the patient age. IMPRESSIONS: 1. Mild age-related atrophy. 2. Scattered punctate white matter changes, differential diagnosis discussed above. This is not out o f proportion to the patient age.
== END | disposition home or self-care (01) ==
LOC: RADMRIMAIN 14:28
PROVIDERS: ATTEND Psychiatry & Neurology Neurology
DX: R90.82 White matter disease, unspecified (principal); G31.1 Senile degeneration of brain, not elsewhere classified
CPT/HCPCS: 70551

== ENCOUNTER → 2020-05-02 | Outpatient (CLI) | payer BC ==
--- NOTE | 2020-05-02 14:59 | US ---
EXAMINATION TYPE: US carotid duplex BILAT DATE OF EXAM: 05/02/2020 COMPARISON: NONE CLINICAL HISTORY: R20.0 facial numbness. EXAM MEASUREMENTS: RIGHT: Peak Systolic Velocity (PSV) cm/sec ----- Right CCA: 122 ----- Right ICA: 120 ----- Right ECA: 124 ICA/CCA ratio: 0.98 RIGHT: End Diastole cm/sec ----- Right CCA: 25.1 ----- Right ICA: 21.1 ----- Right ECA: 12.9 LEFT: Peak Systolic Velocity (PSV) cm/sec ----- Left CCA: 146 ----- Left ICA: 114 ----- Left ECA: 165 ICA/CCA ratio: 0.78 LEFT: End Diastole cm/sec ----- Left CCA: 26.8 ----- Left ICA: 18.4 ----- Left ECA: 9.4 VERTEBRALS (direction of flow): Right Vertebral: Antegrade Left Vertebral: Antegrade Rhythm: Normal grayscale images show no significant asymmetric focal plaque carotid bulb level bilaterally. Velocity measurements and ratios in both internal carotid arteries remains within normal limits. Increased pe ak systolic velocities bilateral common carotid arteries noted. Findings concerning for underlying un controlled hypertension. Correlate clinically. IMPRESSION: No hemodynamically significant stenosis seen in either internal carotid artery. Criteria for Assigning % of Stenosis / Diameter reduction (Estimation based on the indirect measurements of the internal carotid artery velocities (ICA PSV). 1. Normal (no stenosis)=ICA PSV < 125 cm/s: ratio < 2.0: ICA EDV<40 cm/s. 2. Less than 50% stenosis=ICA PSV < 125 cm/s: ratio < 2.0: ICA EDV<40 cm/s. 3. 50 to 69% stenosis=ICA PSV of 125 to 230 cm/s: ration 2.0 ? 4.0: ICA EDV 40-100 cm/s. 4. Greater than 70% stenosis to near occlusion= ICA PSV > 230 cm/s: ratio > 4.0: ICA EDV > 100 cm/s. 5. Near occlusion= ICA PSV velocities may be low or undetectable: variable ratio and ICA EDV. 6. Total occlusion=unable to detect flow.
== END | disposition home or self-care (01) ==
LOC: RADUSWWP 14:00
PROVIDERS: ATTEND Psychiatry & Neurology Neurology
DX: R20.0 Anesthesia of skin (principal)
CPT/HCPCS: 93880

== ENCOUNTER → 2021-01-04 | Outpatient (CLI) | payer BC ==
[2021-01-04 15:01] LABS: Basophils # (A) 0.03 X 10*3/uL (0.00-0.10); Basophils % (A) 0.5 %; Eosinophils # (A) 0.13 X 10*3/uL (0.04-0.35); HCT 51.2 % (39.6-50.0); HGB 17.1 g/dL (13.0-17.0); Lymphocytes # (A) 2.47 X 10*3/uL (0.90-5.00); Lymphocytes % (A) 38.6 %; MCH 31.1 pg (27.0-32.0); MCHC 33.4 g/dL (32.0-37.0); MCV 93.3 fL (80.0-97.0); Mean Platelet Volume 10.6 fL (9.5-12.2); Monocytes # (A) 0.54 X 10*3/uL (0.20-1.00); Monocytes % (A) 8.4 %; Neutrophils # (A) 3.22 X 10*3/uL (1.80-7.70); Neutrophils % (A) 50.3 %; Platelet Count 250 X 10*3/uL (140-440); RBC 5.49 X 10*6/uL (4.40-5.60); RDW 12.8 % (11.5-14.5)
[2021-01-04 19:45] LABS: African American GFR (CKD) 83.5 (60.0-200.0); Albumin 4.6 g/dL (3.80-4.90); Albumin/Globulin Ratio 2.3 (1.60-3.17); Anion Gap 14.3 mmol/L (4.00-12.00); BUN/Creat Ratio 11.82 Ratio (12.00-20.00); Calcium 9.7 mg/dL (8.7-10.3); Carbon Dioxide 23.7 mmol/L (21.6-31.8); Chol/HDL Ratio 2.39; Non-African American GFR(CKD) 72.1 (60.0-200.0); Potassium 4.2 mmol/L (3.5-5.5); Total Bilirubin 0.7 mg/dL (0.2-1.2); Total Protein 6.6 g/dL (6.2-8.2)
== END | disposition home or self-care (01) ==
LOC: LABWHC1 08:42
PROVIDERS: ATTEND Family Medicine
DX: Z00.00 Encounter for general adult medical examination without abnormal findings (principal); I10 Essential (primary) hypertension
CPT/HCPCS: 36415; 80053; 80061; 85025

== ENCOUNTER → 2021-10-30 | Outpatient (CLI) | payer BC ==
[2021-10-30 15:22] LABS: Basophils # (A) 0.03 X 10*3/uL (0.00-0.10); Basophils % (A) 0.4 %; Eosinophils % (A) 2.4 %; HCT 48.2 % (39.6-50.0); HGB 15.9 g/dL (13.0-17.0); Immature Grans, Automated 0.5 %; Lymphocytes # (A) 1.62 X 10*3/uL (0.90-5.00); Lymphocytes % (A) 19.6 %; MCH 31.2 pg (27.0-32.0); MCV 94.5 fL (80.0-97.0); Mean Platelet Volume 10.6 fL (9.5-12.2); Monocytes # (A) 0.51 X 10*3/uL (0.20-1.00); Monocytes % (A) 6.2 %; NRBC Per 100 WBC 0 /100 WBCS (0.0-0.0); Neutrophils # (A) 5.88 X 10*3/uL (1.80-7.70); Neutrophils % (A) 70.9 %; Platelet Count 233 X 10*3/uL (140-440); RDW 13.2 % (11.5-14.5); WBC 8.28 X 10*3/uL (4.50-10.00)
[2021-10-30 15:49] LABS: ALT 21 U/L (10-49); AST 23 U/L (14-35); African American GFR (CKD) 93.1 (60.0-200.0); Albumin 4.4 g/dL (3.8-4.9); Albumin/Globulin Ratio 1.76 (1.60-3.17); Alkaline Phosphatase 81 U/L (41-126); Blood Urea Nitrogen 16.1 mg/dL (9.0-27.0); Calcium 9.4 mg/dL (8.7-10.3); Carbon Dioxide 21.9 mmol/L (20.0-27.5); Chloride 103 mmol/L (96-109); Chol/HDL Ratio 2.48 Ratio; Globulin 2.5 g/dL (1.6-3.3); Glucose 98 mg/dL (70-110); LDL Cholesterol,Calculated 77.9 mg/dL (0.0-131.0); Non-African American GFR(CKD) 80.3 (60.0-200.0); Sodium 138 mmol/L (135-145); Total Protein 6.9 g/dL (6.2-8.2); VLDL Calculation 15.78 mg/dL (5.00-40.00)
[2021-10-30 20:21] LABS: Appearance,Urine Cloudy (Clear); Bacteria,Urine 1+ /HPF (None Seen); Bilirubin,Urine Negative (Negative); Blood,Urine Negative (Negative); Color,Urine Yellow (Yellow); Ketones,Urine Negative (Negative); Leukocyte Esterase,Urine Trace (Negative); Nitrite,Urine Positive (Negative); PH, Urine >=9.0 (5.0-8.0); Protein,Urine 100 (Negative); RBC,Urine 0-2 /HPF (0-2); Specific Gravity,Urine 1.023 (1.001-1.030); WBC,Urine 0-5 /HPF (0-5)
== END | disposition home or self-care (01) ==
LOC: LABWHC1 08:13
PROVIDERS: ATTEND Family Medicine
DX: Z00.00 Encounter for general adult medical examination without abnormal findings (principal); I48.91 Unspecified atrial fibrillation; I10 Essential (primary) hypertension
CPT/HCPCS: 36415; 80053; 80061; 81001; 85025